=== PATIENT | female | born 1975 | race Hispanic/Latino ===

== ENCOUNTER 2025-06-30 17:02 | Emergency (ER) | payer OTHER, SELFPAY ==
[2025-06-30 17:17] VITALS: BP 186/74; PULSE 83; RESP 20; TEMP 36.5; O2SAT 100
--- NOTE | 2025-06-30 17:46 | ED_ITS ---
HPI - Abdominal Pain General Chief Complaint: Abdominal Pain <Chana Ibarra PA-C - Last Filed: 07/09/25 15:00> Stated Complaint: abd pain <Chana Ibarra PA-C - Last Filed: 07/09/25 15:00> Time Seen by Provider: 06/30/25 17:46 <Chana Ibarra PA-C - Last Filed: 07/09/25 15:00> Focused HPI: This is a 49 year old female that presents to the ER for epigastric abdominal pain. Ongoing over the last couple of days. Reports vomiting, diarrhea. Denies fever, dysuria. GENERAL: Uncomfortable, well-nourished, and in no acute distress. HEAD: Normocephalic, atraumatic. CHEST: Clear to auscultation. ?No respiratory distress. HEART: Regular rate and rhythm.? NEURO: ?Alert and oriented x3. Patient screened in triage and initial orders placed.? ?Additional care and disposition to be based upon?diagnostic testing and treatment. <Chana Ibarra PA-C - Last Filed: 07/09/25 15:00> Source: patient and family <Maxine Mcdonnell MD - Last Filed: 07/01/25 17:21> Mode of arrival: ambulatory <Maxine Mcdonnell MD - Last Filed: 07/01/25 17:21> Limitations: language barrier (Micropaleontologist Brenden #[id number]) <Maxine Mcdonnell MD - Last Filed: 07/01/25 17:21> History of Present Illness HPI narrative: Agree with the above with the following additions/corrections: Patient describes epigastric abdominal pain like a burning sensation for 3 days. Nauseated with non bloody emesis. Lives with ; no sick contacts. Also diarrhea. Spicy foods make her symptoms worse. Has happened before but never before for 3 days. No fevers or dysuria. Does not follow with GI. No prior EGD. Tried an OTC medication/omeprazole at home. Got medications from triage and feeling better now. PCP Roland Sweeney. No prior abdoinal surgeries. History of non insulin dependent diabetes mellitus, on pills. <Maxine Mcdonnell MD - Last Filed: 07/01/25 17:21> Related Data Allergies/Adverse Reactions: Allergies Allergy/AdvReac Type Severity Reaction Status Date / Time No Known Allergies Allergy Verified 06/30/25 22:40 <Chana Ibarra PA-C - Last Filed: 07/09/25 15:00> Review of Systems 2 Review of Systems: All systems reviewed & are unremarkable except as noted in HPI and below <Chana Ibarra PA-C - Last Filed: 07/09/25 15:00> PMFSH Past Medical History Medical History: Medical History Non-insulin dependent diabetes mellitus <Chana Ibarra PA-C - Last Filed: 07/09/25 15:00> Social History Social History: Social History Social History: Living arrangements: with family Additional living arrangements comments: <Chana Ibarra PA-C - Last Filed: 07/09/25 15:00> Exam 2 Narrative: GENERAL: Well-appearing, well-nourished, and in no acute distress. HEAD: Normocephalic, atraumatic. EYES: Non injected, non icteric ENT: Nares clear, no rhinorrhea or epistaxis. Gross auditory acuity intact. NECK: Supple. No meningismus. CHEST: Speaking in full sentences. No respiratory distress. HEART: Regular rate and rhythm. . ABDOMEN: Soft, nondistended. No TTP throughout. No rigidity or guarding. Not peritoneal. Desai sign negative. EXTREMITIES: Normal range of motion. No lower extremity edema. SKIN: Warm, dry, no rash. NEURO: No focal deficits. Alert and oriented. Answering questions. Following commands. Normal speech without aphasia or dysarthria. PSYCH: Normal mood and affect. <Maxine Mcdonnell MD - Last Filed: 07/01/25 17:21> Course Vital Signs Vital signs: Vital Signs Temperature 97.7 F 06/30/25 17:17 Pulse Rate 83 06/30/25 17:17 Respiratory Rate 20 06/30/25 17:17 Blood Pressure 186/74 H 06/30/25 17:17 Pulse Oximetry 100 06/30/25 17:17 Temperature 97.7 F 06/30/25 17:17 Pulse Rate 74 06/30/25 23:00 Respiratory Rate 12 06/30/25 23:00 Blood Pressure 180/101 H 06/30/25 23:00 Pulse Oximetry 97 06/30/25 23:00 <Chana Ibarra PA-C - Last Filed: 07/09/25 15:00> Vital Signs Temperature 97.7 F 06/30/25 17:17 Pulse Rate 83 06/30/25 17:17 Respiratory Rate 20 06/30/25 17:17 Blood Pressure 186/74 H 06/30/25 17:17 Pulse Oximetry 100 06/30/25 17:17 Temperature 97.7 F 06/30/25 17:17 Pulse Rate 74 06/30/25 23:00 Respiratory Rate 12 06/30/25 23:00 Blood Pressure 180/101 H 06/30/25 23:00 Pulse Oximetry 97 06/30/25 23:00 <Maxine Mcdonnell MD - Last Filed: 07/01/25 17:21> MDM - Abdominal Pain MDM Narrative Medical decision making narrative: Patient presents with epigastric abdominal pain associated with nausea and vomiting. Describes pain as a burning. Also had some diarrhea. Worsened by spicy foods. In the emergency department she is afebrile with vital signs notable for hypertension. Glucosuria but otherwise urine without signs of infection. Only very mild leukocytosis. Hyperglycemia without anion gap acidosis. Patient has hypokalemia. Oral repletion ordered in addition to magnesium lab. Lipase normal. Patient had been given famotidine and ondansetron. Magnesium normal. Feeling better after the meds from triage. Will defer imaginag at this time. Stable for discharge. Rx for omeprazole and Zofran. Advised f/u with pcp and also given GI contact info. <Maxine Mcdonnell MD - Last Filed: 07/01/25 17:21> Differential Diagnosis Differential diagnosis: Likely abdominal pain, constipation, diverticulitis, endometriosis, gastroenteritis, pancreatitis and other (gastritis; peptic/gastric ulcer disease) <Maxine Mcdonnell MD - Last Filed: 07/01/25 17:21> Lab Data Attestation: I reviewed the patient's lab results. <Maxine Mcdonnell MD - Last Filed: 07/01/25 17:21> Result diagrams: 06/30/25 19:12 06/30/25 19:12 <Chana Ibarra PA-C - Last Filed: 07/09/25 15:00> Labs: Lab Results 06/30/25 06/30/25 Range/Units 19:12 19:21 WBC 10.1 H (4.5-10.0) K/mm3 RBC 4.29 (4.2-5.4) M/mm3 Hgb 12.0 (12.0-15.0) g/dL Hct 37.5 (37.0-47.0) % MCV 87.4 (80-100) fl MCH 28.0 (26-34) pg MCHC 32.0 (32-36) g/dl RDW 14.4 (11.5-14.5) % Plt Count 278 (150-375) k/mm3 MPV 10.9 H (7.4-10.4) fl Immature Gran % (Auto) 0.3 (0-0.5) % Neut % (Auto) 75.0 H (45.5-73.1) % Lymph % (Auto) 17.1 L (18.3-44.2) % [place] % (Auto) 5.9 (2.6-8.5) % Eos % (Auto) 1.2 (0-4.4) % Baso % (Auto) 0.5 (0.2-1.2) % Lymph # (Auto) 1.73 (0.9-3.2) K/mm3 [place] # (Auto) 0.6 (0.1-0.6) K/mm3 Eos # (Auto) 0.1 (0-0.3) K/mm3 Baso # (Auto) 0.1 (0.0-0.1) K/mm3 Abs Immat Gran (auto) 0.03 (0.00-0.031) K/mm3 Absolute Neuts (auto) 7.6 H (1.3-6.7) K/mm3 Absolute Nucleated RBC 0.000 (0.0-0.012) K/mm3 Nucleated RBC % 0.0 (0.0-0.2) % Sodium 135 L (137-145) mmol/L Potassium 3.1 L (3.4-5.0) mmol/L Chloride 103 (98-107) mmol/L Carbon Dioxide 25 (22-30) mmol/L Anion Gap 7 (4-12) mmol/L BUN 13 (7-17) mg/dL Creatinine 0.61 L (0.7-1.0) mg/dL Estim Creat Clear Calc Not Reportable Estimated GFR > 60 (59 - ) Glucose 177 H (65-110) mg/dL Calcium 8.6 (8.4-10.2) mg/dL Magnesium 2.0 (1.6-2.3) mg/dL Total Bilirubin 0.4 (0.2-1.3) mg/dL AST 40 H (14-36) U/L ALT 27 (6-35) U/L Alkaline Phosphatase 69 (38-126) U/L Total Protein 7.5 (6.3-8.2) g/dL Albumin 4.1 (3.5-5.1) g/dL Lipase 96 (23-300) U/L Urine Color Yellow (Yellow) Urine Appearance Clear (Clear) Urine pH 7.5 (5.0-9.0) Ur Specific [place] 1.028 (1.001-1.035) Urine Protein Trace (Negative) mg/dL Urine Glucose (UA) 3+ H (Negative) mg/dL Urine Ketones Trace H (Negative) mg/dL Ur Blood (Man) Negative (Negative) Urine Nitrate Negative (Negative) Urine Bilirubin Negative (Negative) Urine Urobilinogen 1.0 (<2.0) mg/dL Leukocyte Esterase Rfl Negative (Negative) NAVI/UL Urine RBC 0-2 (0-2) /hpf Urine WBC 0-5 (0-3) /hpf Ur Squamous Epith Cells None seen (Few) /hpf Urine Bacteria None seen /hpf Urine Casts 0-2 POC Urine HCG, Qual Negative (Negative) <Chana Ibarra PA-C - Last Filed: 07/09/25 15:00> Lab Results 06/30/25 06/30/25 Range/Units 19:12 19:21 WBC 10.1 H (4.5-10.0) K/mm3 RBC 4.29 (4.2-5.4) M/mm3 Hgb 12.0 (12.0-15.0) g/dL Hct 37.5 (37.0-47.0) % MCV 87.4 (80-100) fl MCH 28.0 (26-34) pg MCHC 32.0 (32-36) g/dl RDW 14.4 (11.5-14.5) % Plt Count 278 (150-375) k/mm3 MPV 10.9 H (7.4-10.4) fl Immature Gran % (Auto) 0.3 (0-0.5) % Neut % (Auto) 75.0 H (45.5-73.1) % Lymph % (Auto) 17.1 L (18.3-44.2) % [place] % (Auto) 5.9 (2.6-8.5) % Eos % (Auto) 1.2 (0-4.4) % Baso % (Auto) 0.5 (0.2-1.2) % Lymph # (Auto) 1.73 (0.9-3.2) K/mm3 [place] # (Auto) 0.6 (0.1-0.6) K/mm3 Eos # (Auto) 0.1 (0-0.3) K/mm3 Baso # (Auto) 0.1 (0.0-0.1) K/mm3 Abs Immat Gran (auto) 0.03 (0.00-0.031) K/mm3 Absolute Neuts (auto) 7.6 H (1.3-6.7) K/mm3 Absolute Nucleated RBC 0.000 (0.0-0.012) K/mm3 Nucleated RBC % 0.0 (0.0-0.2) % Sodium 135 L (137-145) mmol/L Potassium 3.1 L (3.4-5.0) mmol/L Chloride 103 (98-107) mmol/L Carbon Dioxide 25 (22-30) mmol/L Anion Gap 7 (4-12) mmol/L BUN 13 (7-17) mg/dL Creatinine 0.61 L (0.7-1.0) mg/dL Estim Creat Clear Calc Not Reportable Estimated GFR > 60 (59 - ) Glucose 177 H (65-110) mg/dL Calcium 8.6 (8.4-10.2) mg/dL Magnesium 2.0 (1.6-2.3) mg/dL Total Bilirubin 0.4 (0.2-1.3) mg/dL AST 40 H (14-36) U/L ALT 27 (6-35) U/L Alkaline Phosphatase 69 (38-126) U/L Total Protein 7.5 (6.3-8.2) g/dL Albumin 4.1 (3.5-5.1) g/dL Lipase 96 (23-300) U/L Urine Color Yellow (Yellow) Urine Appearance Clear (Clear) Urine pH 7.5 (5.0-9.0) Ur Specific [place] 1.028 (1.001-1.035) Urine Protein Trace (Negative) mg/dL Urine Glucose (UA) 3+ H (Negative) mg/dL Urine Ketones Trace H (Negative) mg/dL Ur Blood (Man) Negative (Negative) Urine Nitrate Negative (Negative) Urine Bilirubin Negative (Negative) Urine Urobilinogen 1.0 (<2.0) mg/dL Leukocyte Esterase Rfl Negative (Negative) NAVI/UL Urine RBC 0-2 (0-2) /hpf Urine WBC 0-5 (0-3) /hpf Ur Squamous Epith Cells None seen (Few) /hpf Urine Bacteria None seen /hpf Urine Casts 0-2 POC Urine HCG, Qual Negative (Negative) <Maxine Mcdonnell MD - Last Filed: 07/01/25 17:21> Discharge Plan Discharge Clinical Impression: Epigastric abdominal pain, Glucosuria, Hyperglycemia, Hypokalemia, Gastritis <Chana Ibarra PA-C - Last Filed: 07/09/25 15:00> Patient Disposition: Home <Chana Ibarra PA-C - Last Filed: 07/09/25 15:00> Condition: Stable <Chana Ibarra PA-C - Last Filed: 07/09/25 15:00> Instructions: Antibiotic Form, Gastritis (DC), Hypokalemia (ED), Diabetic Hyperglycemia (ED), Epigastric Pain (ED) <Chana Ibarra PA-C - Last Filed: 07/09/25 15:00> Additional Instructions: Her symptoms sound consistent with gastritis. Follow-up with your primary care provider. You can continue to take the prescribed omeprazole. If your symptoms persist beyond that you may need to follow-up with a accounts specialist. If needed, the name of a doctor is listed below. Return to the emergency department with any new or worsening symptoms. Ondansetron may help with your nausea/vomiting. <Chana Ibarra PA-C - Last Filed: 07/09/25 15:00> Patient Language: Iranian <Chana Ibarra PA-C - Last Filed: 07/09/25 15:00> Prescriptions: New omeprazole 20 mg tablet,delayed release (DR/EC) 20 mg PO DAILY Qty: 14 0RF ondansetron 4 mg tablet,disintegrating 4 mg PO Q8H PRN (Reason: nausea and vomiting) Qty: 7 0RF <Chana Ibarra PA-C - Last Filed: 07/09/25 15:00> Follow-up/Referrals: Patel,LOLI Funez [Primary Care Provider, Unknown] Michael Coburn MD [Physician, Gastroenterology] UNKNOWN,DOCTOR [Non-Staff] <Chana Ibarra PA-C - Last Filed: 07/09/25 15:00> Stand Alone Forms: Work/School Release IP <Chana Ibarra PA-C - Last Filed: 07/09/25 15:00> Time of Disposition: 00:09 <Chana Ibarra PA-C - Last Filed: 07/09/25 15:00> 00:09 <Maxine Mcdonnell MD - Last Filed: 07/01/25 17:21>
[2025-06-30 19:17] LABS: Hematocrit 37.5 % (37.0-47.0); Hemoglobin 12.0 g/dL (12.0-15.0); Immature Granulocyte Percent A 0.3 % (0-0.5); Lymphocytes Absolute Auto 1.73 K/mm3 (0.9-3.2); Mean Corpuscular HGB Conc 32.0 g/dl (32-36); Mean Corpuscular Hemoglobin 28.0 pg (26-34); Mean Corpuscular Volume 87.4 fl (80-100); Nucleated Red Blood Cells Absolute Auto 0.000 K/mm3 (0.0-0.012); Nucleated Red Blood Cells Perc 0.0 % (0.0-0.2); Platelet Count Result 278 k/mm3 (150-375); Red Blood Count 4.29 M/mm3 (4.2-5.4); White Blood Count 10.1 K/mm3 (4.5-10.0)
[2025-06-30 19:25] LABS: BEDSIDEPREGUCG Negative (Negative)
[2025-06-30 19:31] LABS: Add Urine Microscopic? YES; Appearance Urine Clear (Clear); Glucose Urine UA 3+ mg/dL (Negative); Leukocyte Esterase Ur Negative LEU/UL (Negative); Nitrate Urine Negative (Negative); Non Pathogenic Casts 0-2; Specific Grav Ur 1.028 (1.001-1.035)
[2025-06-30 19:50] LABS: Alanine Aminotransferase 27 U/L (6-35); Albumin Level 4.1 g/dL (3.5-5.1); Alkaline Phosphatase 69 U/L (38-126); Anion Gap 7 mmol/L (4-12); Aspartate Amino Transferase 40 U/L (14-36); Bilirubin,Total 0.4 mg/dL (0.2-1.3); Blood Urea Nitrogen 13 mg/dL (7-17); Calcium 8.6 mg/dL (8.4-10.2); Carbon Dioxide 25 mmol/L (22-30); Chloride 103 mmol/L (98-107); Estimated Glomerular Filt Rate > 60; Glucose 177 mg/dL (65-110); Lipase 96 U/L (23-300); Potassium 3.1 mmol/L (3.4-5.0); Sodium 135 mmol/L (137-145); Total Protein 7.5 g/dL (6.3-8.2)
[2025-06-30] MEDS: ONDANSETRON INJ 4 MG/2 ML VIAL IV PUSH (22:43)
[2025-06-30] MEDS: FAMOTIDINE 20 MG/2 ML VIAL IV PUSH (22:43)
[2025-06-30 22:52] VITALS: BP 166/84; PULSE 75; RESP 17; O2SAT 97
[2025-06-30 23:00] VITALS: BP 180/101; PULSE 74; RESP 12; O2SAT 97
[2025-06-30 23:15] LABS: Magnesium 2.0 mg/dL (1.6-2.3)
[2025-06-30] MEDS: POTASSIUM BICARBONATE 25 MEQ TABEF 50 MEQ PO (23:30)
[2025-07-01] MEDS: Please add drug allergy info to patient profile. 1 EACH XX (00:13)
== END 2025-07-01 00:27 | disposition home or self-care (01) ==
PROVIDERS: Physician Assistant; Emergency Provider Student in an Organized Health Care Education/Training Program; PCP Physician Assistant Medical
DX: K29.70 Gastritis, unspecified, without bleeding (principal); E11.65 Type 2 diabetes mellitus with hyperglycemia; R81 Glycosuria; E87.6 Hypokalemia; Z79.84 Long term (current) use of oral hypoglycemic drugs
CPT/HCPCS: 36415; 80053; 81001; 81025; 83690; 83735; 85025; 96374; 96375; 99284; A9270; J2405